=== PATIENT | female | born 1950 | race Caucasian/White ===

== ENCOUNTER → 2016-10-27 | Outpatient (CLI) | payer MEDICARE, OTHER ==
[~2016-10-27] MED LIST: BUSP10TA8 PO; METROLOTION TOP; PREV15CA20 PO; PROP10TA26 PO; [UNRECOGNIZED DRUG - CODE] PO; [UNRECOGNIZED DRUG - CODE] PO
--- NOTE | 2016-10-28 08:46 | TR ---
Date Performed: 10/27/2016 Time Performed: 13:13:47 DOCTOR: Moncho Lemus DRUG LIST: CLINICAL HISTORY: REASON FOR TEST: Chest pain REASON FOR ENDING: OBSERVATION: CONCLUSION: Alfred protocol completed. Stopped sec to exceeding target heart rate and leg fatigue .Maximum HP=716 Target HR Achieved=90.0% Maximum JY=033/90 Total Exercise Time=7:01. No complaints o f chest pain or discomfort. Complaint of slight shortness of breath. Prior to exam st segment inferio rly slight depressed. Stage 3 freq PVCs. At peak more pronounced ST depression inferiorly, possible f alse positive. Good exercise tolerance. Normal bp response. Recovery quick and unremarkable. COMMENTS: ST depression noted at peak exercise in leads 2,3,and avF, V4 through V6. No chest jimbo n was present. These finding may represent ischemia .
== END ==
LOC: HCAV 12:38
PROVIDERS: ATTEND Allergy & Immunology
DX: R07.9 Chest pain, unspecified (principal)
CPT/HCPCS: 93017